=== PATIENT | male | born 1990 | race Caucasian/White ===

== ENCOUNTER 2020-09-14 05:03 | Emergency (ER) | payer OTHER ==
[~2020-09-14] VITALS: Ht 175.3 cm; Wt 74.8 kg
[~2020-09-14 05:03] MED LIST: ALBU90OI61 INH; DIVA250EC PO; DIVA500EC PO; Monodox100 MG PO; RISP1 PO
[2020-09-14] MEDS ORDERED: DEPAKOTE500 M2 PO (05:45)
[2020-09-14] MEDS ORDERED: HALO5 PO (05:45)
== END 2020-09-14 06:06 | disposition home or self-care (01) ==
LOC: ER 05:03
DX: F20.9 Schizophrenia, unspecified (principal); F17.210 Nicotine dependence, cigarettes, uncomplicated
CPT/HCPCS: 99282; A9270

== ENCOUNTER 2022-06-19 20:51 | Inpatient (IN) | payer OTHER ==
[~2022-06-19] VITALS: Ht 175.3 cm; Wt 78.3 kg
[~2022-06-19 20:51] MED LIST changes: +DEPAKOTE500 M2 PO; +HALO5 PO
[2022-06-19 21:12] LABS: BASOPHILS ABSOLUTE AUTO 0.09 K/mm3 (0.00-0.23); BASOPHILS PERCENT AUTO 1 % (0-2); EOSINOPHILS PERCENT AUTO 2 % (0-6); Hematocrit 40.4 % (37.0-53.0); Hemoglobin 13.8 g/dL (13.5-17.5); IMMATURE GRAN ABSOLUTE AUTO 0.03 K/mm3 (0.00-0.10); IMMATURE GRAN PERCENT AUTO 0 % (0-1); LYMPHOCYTES ABSOLUTE AUTO 4.91 K/mm3 (0.84-5.20); LYMPHOCYTES PERCENT AUTO 46 % (21-46); MONOCYTES ABSOLUTE AUTO 0.63 K/mm3 (0.16-1.47); MONOCYTES PERCENT AUTO 6 % (4-13); Mean Corpuscular HGB 28.7 pg (26.0-34.0); Mean Corpuscular HGB Conc 34.2 g/dL (31.5-36.5); Mean Corpuscular Volume 84 fL (80-100); Mean Platelet Volume 9.1 fL (9.1-12.4); NEUTROPHILS ABSOLUTE AUTO 4.79 K/mm3 (1.96-9.15); NEUTROPHILS PERCENT AUTO 45 % (41-73); Platelet Count 359 K/mm3 (150-400); RDW Coefficient Variation 12.8 % (11.7-14.2); Red Blood Cell Count 4.81 M/mm3 (4.30-5.90); White Blood Cell Count 10.65 K/mm3 (4.00-11.30)
[2022-06-19 21:25] LABS: International Normalized Ratio 1.07; Prothrombin Time Results 11.2 Sec (9.7-11.5)
[2022-06-19 21:32] LABS: Alanine Aminotransfer (ALT/SGP 23 U/L (12-78); Albumin, Blood 3.6 g/dL (3.4-5.0); Albumin/Globulin Ratio 1.2 (0.8-1.8); Alk Phos 82 U/L (50-136); Anion Gap 5 mmol/L (6-16); Aspartate Aminotrans (AST/SGOT 27 U/L (12-37); Bilirubin, Total 1.4 mg/dL (0.1-1.0); Blood Urea Nitrogen 16 mg/dL (8-24); Bun/Creatinine Ratio 13.3 (12.0-20.0); CO2, Blood 23 mmol/L (21-32); Calcium, Blood 8.6 mg/dL (8.5-10.1); Chloride, Blood 114 mmol/L (98-108); Ethanol (Alcohol), Blood, Med <3 mg/dL; Globulin, Blood 3.1 g/dL (2.2-4.0); Glomerular Filtration Rate 84 (60-); Glucose, Blood 138 mg/dL (70-99); Potassium, Blood 3.7 mmol/L (3.5-5.5); Sodium, Blood 142 mmol/L (136-145); Total Protein, Blood 6.7 g/dL (6.4-8.2)
[2022-06-20 02:35] LABS: Calcium, Ionized (POC) 1.13 mmol/L (1.10-1.46); Chloride (POC) 107 mmol/L (98-108); Creatinine (POC) 1.1 mg/dL (0.8-1.3); Glucose (ISTAT POC) 130 mg/dL (70-99); Hemoglobin (POC) 11.9 g/dL (13.5-17.5); Potassium (POC) 4.4 mmol/L (3.5-5.5); Sodium (POC) 141 mmol/L (135-148); Total CO2 (POC) 24 mmol/L (21-32)
--- NOTE | 2022-06-20 09:41 | NUR ---
PT TRANSFERED FROM ER. OPENS EYES TO VERBAL/TACTILE STIMULATION, UNABLE TO ANSWER QUESTIONS. SIG OTHER AT HOME CHECKING ON ANIMALS PER DENT REMOVER. ANESTHESIOLOGIST AT BEDSIDE.
--- NOTE | 2022-06-20 10:03 | NUR ---
PT UNABLE TO SIGN CONSENT FOR PROCEDURE OR BLOOD CONSENT. PT GAVE VERBAL CONSENT TO RECIEVE BLOOD PRODUCTS. PT UNABLE TO GIVE US CONTANCT INFORMATION FOR POA.
--- NOTE | 2022-06-20 10:15 | NUR ---
NO NEXT OF KIN LISTED ON FACE SHEET, 2 DOCTOR CONSENT SIGNED FOR PROCEDURED WITH JOY POSADA WITNESS. 2 RN CONSENT SIGNED FOR WITNESS OF VERBAL PERMISSION FOR BLOOD CONSENT.
[2022-06-20 13:46] LABS: Hematocrit 27.8 % (37.0-53.0); Hemoglobin 9.3 g/dL (13.5-17.5)
--- NOTE | 2022-06-20 15:20 | NUR ---
1500 TRIED TO DO AMITTION SCREEN QUESTIONS WITH PATIENT WHILE HIS SIG. OTHER IS NOW IN THE ROOM AND HE STILL DECLINES TO TALK WITH THE NURSE TO DO ANY CARE FOR HIM.
--- NOTE | 2022-06-20 17:07 | NUR ---
Summary thus far.. Patient has been resting in bed with sig other at bedside. He is still reluctant to have care done for him however he did release his arm to straighten so the iv fluids could be started and the thiamine and folic acid could be given. He has been noted to have some short spurts of sinus tachycardia up to 130 then self resolves down to 90. He has not complained of any further pain to left leg at this time. His pedal pulse on left foot is being dopplered and at 1630 it had a good pulse present. Cap Refil on left foot is less than 3 sec. and color is pimk and skin is warm. would vac is work propperly at this time.
--- NOTE | 2022-06-20 18:38 | NUR ---
FOUND PT WITH SHEETS OVER HIS HEAD... SAW BED WAS WET.. THEN IV OF LEFT AC WAS PULLED OUT. CHANGED PATIENTS BEDDING HE VOIDED IN URINAL AND BECAME UPSET WHIMPERING WHEN TOLD HE COULD NOT LEAVE TONIGHT AND BECAUSE OF THE INJURY TO THE LEG THE FACIOTOMY OCCURED AND A WOUND VAC IS IN PLACE. HE REFUSED STAFF TO PLACE A NEW IV INTO HIM. USING THE ONLY ONE IV TO RIGHT AC TO GIVE HIM FLUIDS INTO.
--- NOTE | 2022-06-20 20:07 | NUR ---
ASSUMED CARE. AOX3. ANXIOUS, GRABBING ONTO GIRLFRIEND STATING HE DOES NOT WANT TO BE ALONE. PRUDENCIO (GIRLFRIEND) INFORMS ME THAT HE HAS HISTORY OF ANXIETY AND FEAR. HE DOES NOT LIKE HOSPITALS AND HAS DIFFICULTY COMMUNICATING WITH PEOPLE HE DOES NOT KNOW. WHILE GIRLFRIEND WAS PRESENT WAS ABLE TO GET HIM TO ANSWER ADMISSION QUESTIONS. DENIES PAIN OR DISCOMFORT. WHEN AWAKE HE TENDS TO BE TEARFUL, ANXIOUS, SHAKING AND HEART RATE INCREASES TO 120-130'S. OCCATIONALLY HE FALLS ASLEEP AND HR DECREASES TO 110'S. WOUND VAC INTACT MEDIAL AND LATERAL SIDE OF LLE, NO LEAKAGE, SEROUS SANGIOUS DRAINAGE IN CANISTER. IVF INFUSING. GIRLFRIEND DID STATES THAT SCARS ON ARMS ARE SELF INFLICTED. SHE HAS ATTEMPTED SEVERAL TIMES TO GET HIM INTO [facility] BUT HE REFUSES TO GO.
--- NOTE | 2022-06-20 20:32 | NUR ---
ATIVAN GIVEN, GIRLFRIEND LEFT FOR THE NIGHT.
--- NOTE | 2022-06-20 21:00 | NUR ---
HR SUSTAINING IN THE 120'S-130'S AT REST AND AFTER ATIVAN. 140'S WHEN AWAKE. BP IS STABLE. CURRENTLY DENIES PAIN. DISCUSSED WITH DR. MARION. ORDERS FOR PAIN MEDS RECEIVED. ORDERS TO MONITOR HR AT THIS TIME, DUE TO HISTORY OF METH AND ALCOHOL USE.
--- NOTE | 2022-06-20 22:15 | NUR ---
DR. GATICA CALLED, UPDATE GIVEN. NO NEW ORDERS.
--- NOTE | 2022-06-21 02:19 | NUR ---
PT IV CAME UNDONE AT THE HUB CAUSING BLEEDING FROM LINE. CLEANED. PULLED BLOOD CLOT FROM IV LINE PRIOR TO FLUSHING, SITE STILL PATENT. NEW HUB PLACED AND IVF HOOKED BACK UP. LINEN CHANGED.
--- NOTE | 2022-06-21 03:38 | NUR ---
PT REFUSING LAB DRAWS AT THIS TIME, HE AGREED TO HAVE THEM DRAWN LATER.
--- NOTE | 2022-06-21 05:55 | NUR ---
SHIFT SUMMARY PT COOPERATIVE AT TIMES. AWAKES TO VERBAL STIMULI. DENIES PAIN. WOUND VAC REMAINS INTACT TO LLE, NO LEAKAGE, SEROUS SANGIOUS DRAINAGE IN CANISTER. POSTERIOR TIBIAL, DORSALIS PEDIS PULSES WITH DOPPLER ONLY. FOOT REMAINS PINK AND WARM. REMAINS SINUS TACH 110-120'S, WHEN AWAKE 130'S. BP STABLE. PT DENIED NEED TO URINATE THIS SHIFT, UNABLE TO OBTAIN U-TOX. REFUSED LABS TO BE DRAWN, WILL ATTEMPT LATER WHEN AWAKE.
--- NOTE | 2022-06-21 09:22 | NUR ---
[place] of Care: Care assumed at 0700hr. Patient sleeping, easily roused to verbal stimuli. Oriented x4, VSS, [id number] on RA. Patient short and irritable with staff, not wanting to participate in any care. Refusing lab draws and lovenox injection this morning. This RN attempted to determine reasoning for refusal and educate patient on need to assess lab values and for lovenox. Patient again short with staff, "I dont care" "I hate needles", and covers his head with blankets, going back to sleep. Wound vac in place to lt lower leg, dressing intact. Small amount of sanguinous drainage in tubing and collection canister. Distal leg/foot appear wnl. Sensation, temp, color, and pulses wnl. Plan to downgrade to surgical status this morning. Will continue to monitor.
[2022-06-21 13:54] LABS: BASOPHILS ABSOLUTE AUTO 0.07 K/mm3 (0.00-0.23); BASOPHILS PERCENT AUTO 1 % (0-2); EOSINOPHILS ABSOLUTE AUTO 0.17 K/mm3 (0.00-0.68); EOSINOPHILS PERCENT AUTO 2 % (0-6); Hematocrit 21.7 % (37.0-53.0); Hemoglobin 7.3 g/dL (13.5-17.5); IMMATURE GRAN ABSOLUTE AUTO 0.04 K/mm3 (0.00-0.10); IMMATURE GRAN PERCENT AUTO 0 % (0-1); LYMPHOCYTES ABSOLUTE AUTO 2.78 K/mm3 (0.84-5.20); LYMPHOCYTES PERCENT AUTO 24 % (21-46); MONOCYTES ABSOLUTE AUTO 1.03 K/mm3 (0.16-1.47); MONOCYTES PERCENT AUTO 9 % (4-13); Mean Corpuscular HGB 29.2 pg (26.0-34.0); Mean Corpuscular HGB Conc 33.6 g/dL (31.5-36.5); Mean Corpuscular Volume 87 fL (80-100); Mean Platelet Volume 9.3 fL (9.1-12.4); NEUTROPHILS ABSOLUTE AUTO 7.52 K/mm3 (1.96-9.15); NEUTROPHILS PERCENT AUTO 65 % (41-73); Platelet Count 237 K/mm3 (150-400); RDW Coefficient Variation 13.2 % (11.7-14.2); RDW Standard Deviation 41.9 fL (35.1-46.3); White Blood Cell Count 11.61 K/mm3 (4.00-11.30)
[2022-06-21 14:19] LABS: Albumin, Blood 2.4 g/dL (3.4-5.0); Bilirubin, Total 0.5 mg/dL (0.1-1.0); Bun/Creatinine Ratio 13.9 (12.0-20.0); Calcium, Blood 7.5 mg/dL (8.5-10.1); Creatinine, Blood 0.79 mg/dL (0.60-1.20); Globulin, Blood 2.4 g/dL (2.2-4.0); Potassium, Blood 3.9 mmol/L (3.5-5.5); Total Protein, Blood 4.8 g/dL (6.4-8.2)
--- NOTE | 2022-06-21 18:37 | NUR ---
Shift Summary: No significant changes throughout shift. VS remain stable, spO2 98-100% on RA. Denies pain discomfort while at rest. C/o pain to lt leg/calf with palpation, patient refused prn pain medications when offered. Wound vac to lt lower leg remains intact. No changes to lt leg/foot. Sensation, warmth, ROM, and pulses remain wnl. Patient continues to refuse most care, but did accept IV folic acid and thiamine this afternoon. Dr. Reed to room this evening, no new orders received, satisfied with appearance of lt leg and dressing. Dr. Reed informed this RN and patient that Dr. Yanez would perform additional wash out and closure of incisions tomorrow or saturday. Will continue to monitor until report to NOC shift RN.
[2022-06-21 19:22] LABS: Hematocrit 20.8 % (37.0-53.0); Hemoglobin 6.9 g/dL (13.5-17.5)
--- NOTE | 2022-06-21 20:00 | NUR ---
ASSUMED CARE. AOX3, GIRLFRIEND AT BEDSIDE. DENIES PAIN EXCEPT SOME DISCOMFORT WHEN MOVING THE LEFT LEG. "IT'S JUST STIFF". ENCOURAGE HIM TO WIGGLE TOES AND ANKLE. WOUND VAC DRESSING INTACT, SUCTION OBTAINED, SEROUS SANGUOUS DRAINAGE IN CANISTER. MILD TEMP OF 99.6, SINUS TACH AT 110. GOOD APPETITE, DRINKING WELL. COOPERATIVE. NO OTHER NEEDS NOTED.
--- NOTE | 2022-06-21 20:33 | NUR ---
CALLED DR. MARION REGARDING DROP IN HBG TO 6.9. ORDER TO TRANSFUSE 1 UNIT OF PRBC. ALSO INFORMED OF MILD FEVER AND SLIGHT INCREASE IN WBC. HE SAID TO JUST WATCH IT FOR NOW. REPORT GIVEN TO LEAH HALL FOR ROOM 224.
--- NOTE | 2022-06-21 22:07 | NUR ---
PT ARRIVED TO ROOM 224 AT 2048. PT AAOX4 AND PLEASANT. WOUND VAC TO LLE. PT REPORTS PAIN TO LLE IS VERY MINIMAL AT THIS TIME. PT WITH GOOD SENSATION TO LLE, ABLE TO WIGGLE TOES AND FEEL TOUCH. STARTING 1 UNIT PRBC NOW PER MD ORDERS. VSS, WILL CONTINUE TO MONITOR.
--- NOTE | 2022-06-22 03:44 | NUR ---
PERINATAL NURSE SUMMARY PT WAS TRANSFERED FROM ICU THIS EVENING. PT AAOX4 AND PLEASANT. L FOOT WRAPPED IN GAUZE AND LC WRAP. GOOD CAP REFILL TO LLE AND PT ABLE TO WIGGLE TOES WITH NO ISSUES. HAS FULL SENSATION TO TOUCH. PT STATES PAIN IN MINIMAL AND HAS NOT NEEDED PAIN MEDS THIS SHIFT. PT RECIEVED 1 UNIT PRBC FOR HGB OF 6.9. PT TOLERATED WELL WITH NO REACTION. PT ANXIOUS AND ASKING ABOUT WHEN HE CAN BE DISCHARGED. EDUCATED PT ON IMPORTANCE NOT RUSHING HEALING PROCESS AND TO FOLLOW DOCTORS PLAN OF CARE TO AVOID INFECTION OR FURTHER COMPLICATIONS. PT AGREEABLE BUT DID NOT SEEM VERY HAPPY THAT HE COULD NOT GO HOME RIGHT AFTER HIS PROCEDURE LATER TODAY. VSS, WILL CONTINUE TO MONITOR.
[2022-06-22 04:10] LABS: Hematocrit 22.4 % (37.0-53.0); Hemoglobin 7.6 g/dL (13.5-17.5); Mean Corpuscular HGB 29.2 pg (26.0-34.0); Mean Corpuscular HGB Conc 33.9 g/dL (31.5-36.5); Mean Corpuscular Volume 86 fL (80-100); Mean Platelet Volume 8.9 fL (9.1-12.4); Platelet Count 219 K/mm3 (150-400); RDW Coefficient Variation 13.4 % (11.7-14.2); RDW Standard Deviation 41.6 fL (35.1-46.3)
[2022-06-22 04:28] LABS: Calcium, Blood 7.5 mg/dL (8.5-10.1); Creatinine, Blood 0.75 mg/dL (0.60-1.20); Potassium, Blood 3.8 mmol/L (3.5-5.5)
--- NOTE | 2022-06-22 13:15 | NUR ---
PATIENT CALLING REQUESTING TO GO HOME. THIS RN HAD CONVERSATION WITH PATIENT REGARDING HIS SURGERY BEING SCHEDULE FOR THIS AFTEROON APPROX 1430. PATIENT STATES HE CANNOT WAIT THAT LONG AND REQUESTS TO GO [place]. THIS RN VERBALIZED THAT HE HAS THE RIGHT TO LEAVE AMA, BUT THE DOCTORHAS NOT DICHARGED HIM AND IT IS RECOMMENDED FOR PATIENT TO STAY TO GET THE MEDICAL TREATMEN THAT THE MD'S ARE RECOMMENDING. PATIENT CONTINUES TO BE VERBALLY UPSET, YELLING/CUSSING THAT "ITS A JOKE", "YOU DONT KNOW WHAT YOURE TALKING ABOUT", ALSO USING INAPPROPRIATE CHOICE WORDS AND SWEARING AT STAFF. THIS RN VERBALIZED TO PATIENT THAT THIS BEHAVIOR IS UNACCEPTABLE AND DISTURBING TO OTHER PATIENTS. POST COMMANDER JOSÉ MIGUEL TO ROOM WITH THIS RN, DISCUSSED AMA FORM WITH PATIENT INCLUDING THE RISKS (WOUND INFECTION, LOSS OF LIMB, SEPSIS, & ) & BENEFITS (NONE). PATIENT SIGNED THE FORM AND ASKED "ARE YOU GOING TO TAKE ME OUTSIDE", THIS RN STATED THAT WE ARE NOT ABLE TO TAKE HIM OUT, BUT IF HE HAS A FAMILY MEMBER, WE RECCOMEND THEY TAKE HIM IN A WHEELCHAIR. PATIENT VERBALIZED "I JUST WANT TO GO SMOKE, CANT YOU JUST TAKE ME OUTSIDE TO SMOKE", BOTH RN JOSÉ MIGUEL & THIS RN VERBALIZED TO PATIENT THAT HE IS UNABLE TO GO OUTSIDE AND SMOKE FOR MULTIPLE REASONS AND THE STAFF IS UNABLE TO ASSIST HIM OUTSIDE TO SMOKE. PATIENT STILL VISIBILY UPSET, SHOVING IV POLE AND BEDSIDE TABLE AROUND. THIS RN AGAIN STATED THAT HIS BEHAVIOR IS INAPPORPRAITE & THAT THIS RN WOULD HAVE THE NURSING ASSEMBLY STOCK SUPERVISOR SPEAK WITH PATIENT. ENGINE WIPER CYNTHIA NOTIFIED OF THIS ENCOUNTER, STATED SHE WUILL SPEAK WITH NURSING ASSEMBLY STOCK SUPERVISOR JOY TO ASSIST IN THE SITATION NEEDED.
--- NOTE | 2022-06-22 13:42 | NUR ---
PATIENT TO DAY SURGERY WITH MICHELLE
--- NOTE | 2022-06-22 17:03 | NUR ---
SHOPPING CENTRE MANAGER CALLED THIS RN REQUESTING PATIENTS BELONGINGS. ALL BELONGINGS FROM ROOM PUT IN TO PATIENT BELONGINGS BAGS AND TAKEN TO PACU. NOTIFIED NURSING SHIFT FOREMAN OF PATIENTS BELONGINGS REPORTED TO BE LOCKED W/ SECURITY.
--- NOTE | 2022-06-22 17:14 | NUR ---
PT LEFT AMA WITH SECRETY AT 1701, SEE DISCHARGE INTERVENTION AND VITAL SIGN NOTES FOR FURTHER CLAIRIFCATION
== END 2022-06-22 17:34 | disposition left against medical advice (07) | DRG 908 ==
LOC: ER 20:51 → SURS 06-20 09:27 → ICUE 06-20 09:27 → ER 06-20 09:32 → SURS 06-20 09:32 → ICUE 06-20 13:15 → SURS 06-21 20:55
PROVIDERS: Nurse Practitioner Acute Care; Orthopaedic Surgery; Student in an Organized Health Care Education/Training Program; ADMIT Internal Medicine
PROC: 0KQT0ZZ Repair Left Lower Leg Muscle, Open Approach (ICD-10-PCS; 2022-06-20)
PROC: 0HQ1XZZ Repair Face Skin, External Approach (ICD-10-PCS; 2022-06-20)
PROC: 30233N1 Transfusion of Nonautologous Red Blood Cells into Peripheral Vein, Percutaneous Approach (ICD-10-PCS; 2022-06-21)
PROC: 0HBLXZZ Excision of Left Lower Leg Skin, External Approach (ICD-10-PCS; 2022-06-21)
PROC: 04L Lower Arteries, Occlusion (ICD-10-PCS; 2022-06-22)
PROC: 0KNT0ZZ Release Left Lower Leg Muscle, Open Approach (ICD-10-PCS; 2022-06-22)
PROC: 0KNT0ZZ Release Left Lower Leg Muscle, Open Approach (ICD-10-PCS; 2022-06-22)
PROC: 0KNT0ZZ Release Left Lower Leg Muscle, Open Approach (ICD-10-PCS; 2022-06-22)
PROC: 0KNT0ZZ Release Left Lower Leg Muscle, Open Approach (ICD-10-PCS; principal; 2022-06-22 14:35)
DX: S85.172A Laceration of posterior tibial artery, left leg, initial encounter (principal); D62 Acute posthemorrhagic anemia; T79.A22A Traumatic compartment syndrome of left lower extremity, initial encounter; J45.909 Unspecified asthma, uncomplicated; Z53.29 Procedure and treatment not carried out because of patient's decision for other reasons; F17.210 Nicotine dependence, cigarettes, uncomplicated; F31.9 Bipolar disorder, unspecified; S01.81XA Laceration without foreign body of other part of head, initial encounter; G40.909 Epilepsy, unspecified, not intractable, without status epilepticus; F15.10 Other stimulant abuse, uncomplicated; F10.229 Alcohol dependence with intoxication, unspecified; Y90.0 Blood alcohol level of less than 20 mg/100 ml; Z79.51 Long term (current) use of inhaled steroids; Z79.899 Other long term (current) drug therapy; W01.118A Fall on same level from slipping, tripping and stumbling with subsequent striking against other sharp object, initial encounter
CPT/HCPCS: 12011; 13120; 36415; 36430; 70450; 71260; 72125; 73706; 74177; 80047; 80048; 80053; 82550; 83735; 85014; 85018; 85025; 85027; 85610; 86850; 86900; 86901; 86923; 96372-59; 96374-59; 96375; 96375-59; 99152; 99153; 99291-25; A9270; G0480; J0330; J0461; J0690; J2060; J2250; J2370; J2704; J3010; J3370; J3411; J7030; J7050; J7120; P9016; Q9967

== ENCOUNTER 2022-07-07 13:47 | Emergency (ER) | payer OTHER ==
[~2022-07-07] VITALS: Ht 180.3 cm; Wt 77.1 kg
[2022-07-07 13:57] VITALS: BP 175/93
== END 2022-07-07 14:05 | disposition left against medical advice (07) ==
LOC: ER 13:47
DX: S61.412A Laceration without foreign body of left hand, initial encounter (principal); W22.8XXA Striking against or struck by other objects, initial encounter; Z53.21 Procedure and treatment not carried out due to patient leaving prior to being seen by health care provider
CPT/HCPCS: 99282